=== PATIENT | male | born 2000 | race Caucasian/White ===

== ENCOUNTER → 2020-05-03 | Outpatient (CLI) | payer BC | LOC: RAD 12:27 | DX: M54.5 Low back pain (principal) | CPT/HCPCS: 72070; 72100 ==

== ENCOUNTER → 2021-03-28 | Outpatient (CLI) | payer BC ==
[2021-03-28 14:31] LABS: HEMOGLOBIN 15.2 gm/dl (14.0-17.5); RED BLOOD COUNT 5.59 M/UL (4.20-5.50); WHITE BLOOD COUNT 5.9 K/UL (4.5-11.0)
[2021-03-28 15:04] LABS: BUN/CREATININE RATIO 10 (0-10)
== END ==
LOC: LAB 13:00
PROVIDERS: Internal Medicine
DX: R10.84 Generalized abdominal pain (principal); R19.7 Diarrhea, unspecified; R53.81 Other malaise
CPT/HCPCS: 36415; 80053; 82150; 83631; 83690; 85025; 86140; 87045; 87046; 87177; 87209; 87324

== ENCOUNTER → 2021-04-09 | Outpatient (CLI) | payer BC | LOC: US 08:30 | DX: R10.84 Generalized abdominal pain (principal) | CPT/HCPCS: 76700 ==

== ENCOUNTER → 2021-10-23 | Outpatient (CLI) | payer OTHER | LOC: KOH-I 11:07 | DX: M79.672 Pain in left foot (principal) | CPT/HCPCS: 73630 ==